=== PATIENT | male | born 1940 | race Caucasian/White ===

== ENCOUNTER 2017-07-09 10:29 | Inpatient (IN) | payer OTHER ==
[2017-06-12 08:36] VITALS: Ht 175.3 cm; Wt 89.3 kg
--- NOTE | 2017-06-12 09:14 | PAT Medication Instructions ---
Service Date Jun 12, 2017. Current Home Medication List Aspirin (Aspirin), 325 MG PO QAM Atorvastatin (Lipitor), 20 MG PO QPM Coenzyme Q10 (Ubidecarenone) (Coq10), 100 MG PO QAM Ibuprofen Tab (Advil), 400 MG PO PRN Lisinopril (Zestril), 20 MG PO QAM Medication Instructions For Your Scheduled Surgery - Contact your surgeon for instructions for: Aspirin (Aspirin), 325 MG PO QAM Ibuprofen Tab (Advil), 400 MG PO PRN - Hold the following medications for two weeks prior to surgery: Coenzyme Q10 (Ubidecarenone) (Coq10), 100 MG PO QAM - Hold the following medications the morning of surgery: Lisinopril (Zestril), 20 MG PO QAM - Take the following medications as scheduled the night before surgery: Atorvastatin (Lipitor), 20 MG PO QPM If you have any questions please call us at [phone] or [phone] or [phone]
[2017-06-12 10:04] LABS: BASO % 0.6 %; BASO ABS # 0.03 K/uL (0-0.2); EOS % 6.7 %; EOS ABS # 0.33 K/uL (0-0.5); HEMATOCRIT 44.8 % (42-52); HEMOGLOBIN 15.8 g/dL (14.0-18.0); IG# 0.01 K/uL (0.00-0.02); LYMPH % 27.1 %; LYMPH ABS # 1.34 K/uL (1.2-3.4); MEAN CELL VOLUME 92.6 fL (80-100); MEAN CORPUSCULAR HEMOGLOBIN 32.6 pg (25-34); MEAN CORPUSCULAR HGB CONC 35.3 g/dl (32-36); MEAN PLATELET VOLUME 10.1 fL (7.4-10.4); MONO % 12.8 %; MONO ABS # 0.63 K/uL (0.11-0.59); NEUT % 52.6 %; PLATELET COUNT 247 K/uL (130-400); RED CELL DISTRIBUTION WIDTH CV 13.1 % (11.5-14.5); RED CELL DISTRIBUTION WIDTH SD 44.3 fL (36.4-46.3); WHITE BLOOD COUNT 4.94 K/uL (4.8-10.8)
--- NOTE | 2017-06-12 10:04 | DIAGNOSTIC IMAGING REPORT ---
TWO VIEW CHEST CLINICAL HISTORY: Preoperative examination. FINDINGS: PA and lateral chest radiographs are obtained. No prior studies are available for comparison at the time of dictation. The heart is top normal for projection and there is atherosclerotic calcification of the thoracic aorta. There is an indeterminant subpleural density seen at the left lung base. No airspace consolidation or pleural effusion is identified. There is no pneumothorax. The skeletal structures are osteopenic. Mild degenerative change is seen throughout the thoracic spine. IMPRESSION: 1. No acute cardiopulmonary abnormality. 2. There is an indeterminant subpleural density at the left lung base. Correlation with a chest CT is recommended for further characterization. Electronically signed by: Cristopher Carmichael M.D. 06/12/2017 10:02 AM Dictated Date/Time: 06/12/2017 10:01 AM
[2017-06-12 10:12] LABS: CALCIUM 9.5 mg/dl (8.5-10.1); CREATININE 0.75 mg/dl (0.60-1.40); POTASSIUM 4.4 mmol/L (3.5-5.1)
[2017-06-12 10:15] LABS: PTT PATIENT 22.4 SECONDS (21.0-31.0)
--- NOTE | 2017-07-04 22:28 | HISTORY & PHYSICAL EXAMINATION ---
DATE OF ADMISSION: 07/09/2017 CHIEF COMPLAINT: Right knee pain and discomfort. HISTORY OF PRESENT ILLNESS: This is a 76-year-old male who presents for surgical treatment of his right knee. He has a long history of right knee pain, discomfort, not been found for the past couple of years. He has had injections into his knee which helped him intermittently. Sometimes they help and sometimes not. The pain is mostly medial. It is increased with weightbearing. There had been points where he has had difficulty walking for several days at a time. He would now like to proceed with knee replacement. PAST MEDICAL HISTORY: 1. Hypertension. 2. Low back pain. 3. Kidney stones. PAST SURGICAL HISTORY: Include, 1. Kidney stone removal. 2. Appendectomy. ALLERGIES: None. CURRENT MEDICINES: 1. Aspirin 325 once a day. 2. Coenzyme Q. 3. Lisinopril 20 mg a day. 4. Lipitor 20 mg a day. SOCIAL HISTORY: A 76-year-old male patient from [place]. He is a retired teacher. He is . He lives alone. Rare alcohol intake. FAMILY HISTORY: Significant for heart disease. REVIEW OF SYSTEMS: Negative for diabetes, neurologic problems, vascular problems or bleeding disorders. No chest pain or shortness of breath. No history of DVT or PE. PHYSICAL EXAMINATION: GENERAL: Reveals a healthy, pleasant, middle-aged male. He looks to be in pretty good health. HEENT: Benign. NECK: Supple. No lymphadenopathy. LUNGS: Clear to auscultation. HEART: Has a regular rate and rhythm. ABDOMEN: Soft, nontender, nondistended. EXTREMITIES: Grossly neurovascularly intact except as follows: Examination of the right knee reveals the patient ambulates independently. He does limp on his right side. He got varus alignment to his knee. Moderate size joint effusion. Range of motion about 10 degrees short of full extension to 125 degrees of flexion. There is no instability. No pain with hip motion. X-RAYS: X-rays of the right knee reviewed. It shows advanced right knee DJD. He has complete loss of his medial joint space. He has little bit of tibial femoral subluxation. He has disease in all 3 compartments. ASSESSMENT: A 76-year-old male with advanced right knee tricompartmental degenerative joint disease. He has failed conservative treatment and would like have his right knee replaced. PLAN: We will take him to the operating room and do a right total knee replacement. The risks and benefits of this procedure were explained to the patient including but not limited to DVT, PE, , infection, neurological injury, vascular injury, bleeding problems, pain, limited range of motion, stiffness, failure to relieve his symptoms, incomplete relief of symptoms, need for further surgery in the future, fracture, leg length inequality, nerve palsy, etc. The patient understands and desires to proceed. Informed consent was obtained. We did talk to him about holding his lisinopril the morning of surgery. He is planning to be discharged to home using the [facility] program I believe.
[~2017-07-09] VITALS: Ht 175.3 cm; Wt 89.3 kg
[2017-07-09] VITALS (7 sets, daily range): BP systolic 114–174; BP diastolic 65–101; PULSE 61–78; TEMP 36.4–37; O2SAT 92–98
[2017-07-09] MEDS: CHECK SCOPOLAMINE PATCH PLACEMENT SCH ×3 (08:00→18:59)
[~2017-07-09 10:29] MED LIST: ACETAMINOPHEN 500 MG TAB PO SCH; ASPI325T45 PO; ATOR-22 PO; BUPIVACAINE 0.5 % 5 MG/1 ML PF 10ML VIAL ONE; BUPIVACAINE LIPOSOME 266 MG, BUPIVACAINE/EPINEPHRINE INJ 50 ML, SODIUM CHLORIDE 0.9% PF... INFIL SCH; CEFAZOLIN 2000MG IV PUSH 10 ML IV SCH; COEN100C7 PO; DEXAMETHASONE SOD INJ 4 MG/ML VIAL ONE; EpHEDrine SULFATE INJ 50 MG/ML AMP ONE; FAMOTIDINE 20 MG TAB PO SCH; FENTANYL CITRATE INJ 50 MCG/1 ML 2 ML VIAL ONE; GABAPENTIN 300 MG CAP PO SCH; GLYCOPYRROLATE INJ 0.2 MG/ML VIAL ONE; IBUP-103 PO; KETOROLAC TROMETHAMINE 30 MG/ML VIAL ONE; LACTATED RINGER'S 1000ML 1,000 ML IV SCH; LACTATED RINGER'S 1000ML 500 ML IV SCH; LACTATED RINGER'S 1000ML IV SCH; LIDOCAINE HCL 2% 2 ML VIAL (20MG/ML) ONE; LISI-725 PO; METOCLOPRAMIDE HCL 10 MG TAB PO SCH; NEOSTIGMINE METHYLSULFATE 5 MG/5 ML SYR ONE; ONDANSETRON INJ 2 MG/ML 2 ML VIAL ONE; PHENYLEPHRINE HCL INJ 10 MG/ML VIAL ONE; PROPOFOL IV EMULSION 10 MG/ML 20 ML VIAL IV ONE; SCOPOLAMINE 1.5 MG TDSY TD SCH; SUCCINYLCHOLINE CHLORIDE 20 MG/ML 10 ML VIAL IV ONE; TRANEXAMIC ACID INJ 1,000 MG in SYRINGE 0 ML IV SCH
--- NOTE | 2017-07-09 11:34 | History & Physical Bridge Note ---
H&P Re-Evaluation Bridge Note: I have examined the patient, reviewed the History & Physical and in the interval since the performance of the History & Physical I have noted the following changes of clinical significance: No changes noted
[2017-07-09] MEDS ORDERED: HYDROmorphone INJ 1 MG/ML SYR IV PRN ×2 (11:45→15:30)
[2017-07-09] MEDS ORDERED: ONDANSETRON INJ 2 MG/ML 2 ML VIAL IV PRN ×2 (11:45→15:30)
[2017-07-09] MEDS ORDERED: ATROPINE SULFATE 0.1 MG/ML 5ML SYR IV PRN (11:45)
[2017-07-09] MEDS ORDERED: EpHEDrine SULFATE INJ 50 MG/ML AMP IV PRN (11:45)
[2017-07-09] MEDS ORDERED: MIDAZOLAM HCL 1 MG/ML 2ML VIAL ONE (12:07)
[2017-07-09] MEDS ORDERED: LIDOCAINE HCL 2% 2 ML VIAL (20MG/ML) ONE (12:25)
[2017-07-09] MEDS ORDERED: ROCURONIUM BROMIDE 10 MG/ML 5 ML VIAL IV ONE (12:25)
[2017-07-09] MEDS ORDERED: PROPOFOL IV EMULSION 10 MG/ML 20 ML VIAL IV ONE (12:25)
[2017-07-09] MEDS ORDERED: ONDANSETRON INJ 2 MG/ML 2 ML VIAL ONE (12:25)
[2017-07-09] MEDS ORDERED: FENTANYL CITRATE INJ 50 MCG/1 ML 2 ML VIAL ONE ×2 (12:26→14:14)
[2017-07-09] MEDS ORDERED: BACITRACIN 50000 UNIT VIAL ONE (13:25)
[2017-07-09] MEDS ORDERED: BUPIVACAINE LIPOSOME 1/3% 266 MG/20 ML VIAL INFIL ONE (13:25)
[2017-07-09] MEDS ORDERED: SODIUM CHLORIDE 0.9% PF 50 ML VIAL ONE (13:25)
[2017-07-09] MEDS ORDERED: BUPIVACAINE/EPINEPHRINE 0.25% 1:200,000 30 ML VIAL ONE (13:25)
[2017-07-09] MEDS ORDERED: HYDROmorphone INJ 2 MG/ML SYR/VIAL ONE (14:17)
--- NOTE | 2017-07-09 15:29 | [facility] Post Operative Brief Note ---
Immediate Operative Summary Operative Date Jul 09, 2017. Pre-Operative Diagnosis Advanced right knee degenerative joint disease. Post-Operative Diagnosis Advanced right knee degenerative joint disease. Procedure(s) Performed Right total knee arthroplasty. Surgeon Dr. Dyer Cnc Operator Surgeon(s) Philip Mock PA-C Estimated Blood Loss 50ml Findings Right Knee DJD Specimens A. Right knee bone and tissue. Drains None Anesthesia General Complication(s) None Disposition Recovery Room / PACU
[2017-07-09] MEDS ORDERED: ALUMINUM/MAGNESIUM/SIMETH (MAALOX MAX) 30 ML UDC PO PRN (15:30)
[2017-07-09] MEDS ORDERED: BISACODYL 10 MG SUPP PR PRN (15:30)
[2017-07-09] MEDS ORDERED: ZOLPIDEM TARTRATE 5 MG TAB PO PRN (15:30)
[2017-07-09] MEDS ORDERED: SILVER SULFADIAZINE 1% CR 50 GM JAR EXT PRN (15:30)
[2017-07-09] MEDS ORDERED: TAMSULOSIN HCL 0.4 MG CAP PO PRN (15:30)
[2017-07-09] MEDS ORDERED: METOCLOPRAMIDE HCL INJ 5 MG/ML 2 ML VIAL IV PRN (15:30)
[2017-07-09] MEDS ORDERED: MAGNESIUM HYDROXIDE SUSP 30 ML UDC PO PRN (15:30)
[2017-07-09] MEDS: FENTANYL CITRATE INJ 50 MCG/1 ML 2 ML VIAL IV PRN ×2 (16:00→16:09)
--- NOTE | 2017-07-09 16:13 | DIAGNOSTIC IMAGING REPORT ---
TWO VIEWS RIGHT KNEE CLINICAL HISTORY: Postoperative examination. FINDINGS: AP and crosstable lateral portable views of the right knee are obtained. A right knee arthroplasty is in near anatomic alignment. There has been undersurface remodeling of the patella. No acute fracture is seen. There are expected postoperative changes around the knee including skin clips, soft tissue edema, and subcutaneous gas. Atherosclerotic calcification is noted in the popliteal artery. IMPRESSION: Expected postoperative changes status post right knee arthroplasty. No acute fracture is seen. Electronically signed by: Cristopher Carmichael M.D. 07/09/2017 4:12 PM Dictated Date/Time: 07/09/2017 4:11 PM
--- NOTE | 2017-07-09 16:35 | Anesthesiology Progress Note ---
Anesthesia Post Op Note Date & Time Jul 09, 2017 at 16:35 Vital Signs Pain Intensity: 2 Vital Signs Past 12 Hours Date Time Temp Pulse Resp B/P (MAP) Pulse Ox O2 Delivery O2 Flow Rate FiO2 07/09/17 16:25 84 18 152/84 97 Nasal Cannula 2 07/09/17 16:15 86 19 151/91 97 Nasal Cannula 2 07/09/17 16:05 86 20 165/87 99 Oxymask 10 07/09/17 15:55 83 16 156/94 99 Oxymask 10 07/09/17 15:45 36.3 94 16 172/97 100 Oxymask 10 07/09/17 13:36 60 16 147/87 (107) 98 Diffusion Mask 10 07/09/17 13:20 59 16 143/85 (104) 100 Mask 8 07/09/17 13:10 60 18 145/88 (107) 100 Mask 8 07/09/17 11:17 36.5 78 16 174/101 98 Room Air Notes Mental Status: alert / awake / arousable, participated in evaluation Pt Amnestic to Procedure: Yes Nausea / Vomiting: adequately controlled Pain: adequately controlled Airway Patency, RR, SpO2: stable & adequate BP & HR: stable & adequate Hydration State: stable & adequate Anesthetic Complications: no major complications apparent
--- NOTE | 2017-07-09 18:47 | OPERATIVE REPORT ---
DATE OF OPERATION: 07/09/2017 SURGEON: Keyshawn Dyer MD PIECE HAND: DENZEL Oconnell PREOPERATIVE DIAGNOSIS: Right knee degenerative joint disease. POSTOPERATIVE DIAGNOSIS: Same. PROCEDURE PERFORMED: Right cemented posterior stabilized total knee arthroplasty. COMPLICATIONS: None. ESTIMATED BLOOD LOSS: 50 mL. FLUID REPLACEMENT: 2000 mL crystalloid fluid replacement. TOURNIQUET TIME: Fifty four minutes at 300 mmHg. ANESTHESIA: General with adductor canal block. DRAINS: None. SPECIMENS: Right knee sent for pathology. OPERATIVE INDICATIONS: The patient is a 76-year-old fairly active independent male who has had a several year history of increasing right knee pain and discomfort. He has been through extensive conservative treatment which became less successful over time. X-rays revealed advanced medial compartment DJD. The patient elected to proceed with operative treatment. OPERATIVE FINDINGS: Operative findings revealed advanced grade 4 [id number] of the medial femoral condyle and medial tibial plateau. He had grade 3 changes elsewhere. He had a moderate sized joint effusion. He had a fixed varus deformity to his knee. He had osteophytes primarily in the medial compartment. OPERATIVE IMPLANTS: Operative implants consisted of: 1. Biomet Vanguard size 67.5 right posterior stabilized femoral component. 2. Biomet size 71 tibial tray. 3. A 12 mm posterior stabilized polyethylene insert. 4. A 34 x 8.5 all poly patella. OPERATIVE PROCEDURE: The patient was taken to the operating room, identified and placed on the operating table in supine position. All contact areas were appropriately padded. IV antibiotics were provided by anesthesia team. A general anesthetic was implemented as the patient has pretty severe aortic stenosis. An adductor canal block had been provided in the holding area. A right thigh tourniquet was then placed and the right lower extremity was then prepped and draped in the usual sterile fashion. The right leg was elevated and exsanguinated with Esmarch and tourniquet was placed at 300 mmHg. An anterior approach to the right knee was then performed through a longitudinal incision centered over the patella. Sharp dissection was carried through the subcutaneous tissues down to the level of the extensor mechanism. A medial parapatellar arthrotomy incision was made. Some subperiosteal dissection was carried out medially. The fat pad was resected from beneath the patellar tendon. The lateral patellofemoral ligament was released. The patella was everted and knee was flexed. The osteophytes were taken off the distal femur. The ACL and PCL were then released from the distal femur and the tibia subluxated anteriorly. The external tibial alignment jig was then placed in the anterior face of the tibia and adjusted 16 mm medially. Proximal tibial cut was made to remove about 2 mm of bone from the most deficient aspect of the medial tibial plateau. Some osteophytes were taken off posteromedially. The tibia was sized to a size 71. This was a little bit undersized, but a 75 was too large in the anterior, posterior dimensions on the lateral side. Attention was then drawn to the femur. The distal femur was entered with a sharp drill bit. Intramedullary canal was suctioned. A right 6 degree valgus cutting guide was placed and distal femoral cutting block was pinned in place. Distal femoral cut was made to take an additional 3 mm of bone off the distal femur. The femur was then sized to a size 67.5. We did downsize this slightly. The AP cutting block was pinned parallel to the epicondylar axis, which was 4 degrees of external rotation. The anterior cut, anterior chamfer, posterior cut, posterior chamfer cuts were made. Box cutting guide was placed and adjusted slightly lateral and the box cut was made. The knee was flexed. The remnants of the medial and lateral menisci were excised. The osteophytes were taken off the posterior aspect of the femur. A trial femoral component was placed. Tibial tray was pinned in maximum external rotation and drill and stem punch were used to create defect in proximal tibia for the tibial tray. The knee was then trialed and the 12 mm insert fit most appropriately. Attention was then drawn to the patella. The patella was cleaned of all soft tissues. Patellar thickness measured 23 mm in thickness and was cut down to 15, it was sized to a size 34 patella. Lug holes were drilled for a 34 patella. Lateral osteophyte was removed. Patella button was placed. Knee was taken through range of motion and the patella tracked nicely with the no thumbs test. Attention was then drawn toward placement of the permanent components. All trial components were removed. A bone plug was placed in the distal femoral to limit blood loss. A double batch of Palacos G cement was mixed. A right size 67.5 posterior stabilized femoral component, a size 71 tibial tray, a 12 mm posterior stabilized polyethylene insert, and a 34 x 8.5 all poly patella was then cemented in place. The knee was brought in to full extension until all cement hardened. A final cement check was then performed. Pericapsular tissues were injected with a total of 100 mL of a combination of 20 mL or Exparel, 30 mL of normal saline, 50 mL of 0.25% Marcaine with epinephrine. The patient did receive 1 gram of tranexamic acid. The tourniquet was then let down for final tourniquet time 54 minutes. Hemostasis was assured with use of electrocautery. The extensor mechanism was then closed with a combination of #1 PDS suture and #1 Vicryl suture in a [id number] fashion. Extensor mechanism was checked and found to be intact. The subcutaneous tissues were then closed with 2-0 Dexon suture in a buried interrupted fashion. Skin was closed skin steve. Leg was then cleaned and dried and a sterile dressing with Xeroform, 4 x 4, sterile cast padding and Spenser bandage were applied. The patient was then brought out of general anesthesia and transferred to the recovery room in stable condition. The patient tolerated the procedure well with no complications. All needle and sponge counts were correct at the end of the operation. I attest to the content of the Intraoperative Record and any orders documented therein. Any exception s are noted below.
[2017-07-09] MEDS: FERROUS GLUCONATE 324 MG TAB PO SCH (19:01)
[2017-07-09] MEDS: KETOROLAC TROMETHAMINE 15 MG/ML VIAL IV. SCH (19:01)
[2017-07-09] MEDS ORDERED: NURSING VERBAL MED ORDER ONE (19:15)
[2017-07-09] MEDS: ASPIRIN 325 MG ECTAB PO SCH (20:58)
[2017-07-09] MEDS: SENNA 8.6 MG TAB PO SCH (20:59)
[2017-07-09] MEDS: D5W AND 1/2NSS + 20MEQ KCL 1,000 ML IV SCH (20:59)
[2017-07-09] MEDS: ATORVASTATIN 20 MG TAB PO SCH (20:59)
[2017-07-09] MEDS: DOCUSATE SODIUM 100 MG CAP PO SCH (20:59)
[2017-07-09] MEDS: ACETAMINOPHEN 500 MG TAB PO SCH (21:00)
[2017-07-09] MEDS ORDERED: NURSING DECISION MEDICATION ORDER SCH (21:15)
[2017-07-09] MEDS ORDERED: COUGH DROP (SUGAR FREE) LOZ 24 LOZ/1 BOX PO PRN (21:30)
[2017-07-09] MEDS ORDERED: TRANEXAMIC ACID INJ 1,000 MG in SODIUM CHLORIDE 0.9% 100ML 100 ML IV SCH (22:00)
[2017-07-09] MEDS: CEFAZOLIN IV 2,000 MG in SYRINGE 0 ML IV SCH (22:17)
[2017-07-10] VITALS (7 sets, daily range): BP systolic 120–150; BP diastolic 67–88; PULSE 55–86; TEMP 36.3–37.1; O2SAT 95–97
[2017-07-10] MEDS: KETOROLAC TROMETHAMINE 15 MG/ML VIAL IV. SCH ×5 (00:51→20:52)
[2017-07-10] MEDS: D5W AND 1/2NSS + 20MEQ KCL 1,000 ML IV SCH ×2 (04:47→12:33)
[2017-07-10] MEDS: CEFAZOLIN IV 2,000 MG in SYRINGE 0 ML IV SCH (05:23)
[2017-07-10] MEDS: ACETAMINOPHEN 500 MG TAB PO SCH ×3 (05:23→21:24)
[2017-07-10 07:14] LABS: HEMOGLOBIN 12.3 g/dL (14.0-18.0); MEAN CELL VOLUME 92.8 fL (80-100); MEAN CORPUSCULAR HEMOGLOBIN 31.7 pg (25-34); MEAN CORPUSCULAR HGB CONC 34.2 g/dl (32-36); MEAN PLATELET VOLUME 9.8 fL (7.4-10.4); PLATELET COUNT 200 K/uL (130-400); RED CELL DISTRIBUTION WIDTH CV 13.2 % (11.5-14.5); RED CELL DISTRIBUTION WIDTH SD 44.2 fL (36.4-46.3); WHITE BLOOD COUNT 10.63 K/uL (4.8-10.8)
[2017-07-10 07:42] LABS: CALCIUM 8.3 mg/dl (8.5-10.1); CREATININE 0.92 mg/dl (0.60-1.40); POTASSIUM 3.9 mmol/L (3.5-5.1)
[2017-07-10] MEDS ORDERED: NON-FORMULARY MEDICATION (Coenzyme Q10 (Ubidecarenone) (Coq10) 100 MG) PO SCH (09:00)
--- NOTE | 2017-07-10 09:12 | Anesthesiology Progress Note ---
Anesthesia Post Op Note Date & Time Jul 10, 2017 at 09:11 Vital Signs Pain Intensity: 0.0 Vital Signs Past 12 Hours Date Time Temp Pulse Resp B/P (MAP) Pulse Ox O2 Delivery O2 Flow Rate FiO2 07/10/17 07:47 96 Room Air 07/10/17 07:39 36.9 55 20 120/70 (87) 96 Room Air 07/10/17 07:35 Room Air 07/10/17 02:30 36.8 62 16 130/75 (93) 95 Room Air 07/10/17 00:30 Room Air 07/09/17 23:47 36.4 61 16 114/65 (81) 92 Room Air Notes Mental Status: alert / awake / arousable, participated in evaluation Pt Amnestic to Procedure: Yes Nausea / Vomiting: adequately controlled Pain: adequately controlled Airway Patency, RR, SpO2: stable & adequate BP & HR: stable & adequate Hydration State: stable & adequate Anesthetic Complications: no major complications apparent
[2017-07-10] MEDS: FERROUS GLUCONATE 324 MG TAB PO SCH ×3 (09:23→18:08)
[2017-07-10] MEDS: DOCUSATE SODIUM 100 MG CAP PO SCH ×2 (09:23→20:51)
[2017-07-10] MEDS: ASPIRIN 325 MG ECTAB PO SCH ×2 (09:23→20:51)
[2017-07-10] MEDS: LISINOPRIL 20 MG TAB PO SCH (09:24)
[2017-07-10] MEDS: PANTOprazole SOD 40 MG TAB PO SCH (09:24)
[2017-07-10] MEDS: CHECK SCOPOLAMINE PATCH PLACEMENT SCH ×3 (09:25→14:13)
[2017-07-10] MEDS: MULTIVITAMIN TAB PO SCH (09:25)
--- NOTE | 2017-07-10 14:20 | PROGRESS NOTE ---
DATE: 07/10/2017 DATE: 07/10/2017 SUBJECTIVE: A 76-year-old gentleman postop day 1 from right knee replacement. He is doing well. He rates his most severe pain at a 2. No chest pain or shortness of breath. Not feeling dizzy or lightheaded. OBJECTIVE: VITAL SIGNS: Temperature is 36.3. Vital signs stable. PHYSICAL EXAMINATION: GENERAL: Reveals a healthy, pleasant, middle-aged male. He is sitting up in bed and looks comfortable. LUNGS: Clear to auscultation. HEART: Regular rate and rhythm. ABDOMEN: Soft, nontender, nondistended. EXTREMITY EXAMINATION: Grossly neurovascularly intact as follows: Examination of the right leg reveals the dressing to be clean, dry and intact. Leg is well aligned. He can dorsiflex and plantarflex his foot appropriately. He is neurologically intact. LABORATORY DATA: Hemoglobin 12.3, hematocrit 36.0. Electrolytes are stable. ASSESSMENT: A 76-year-old gentleman postop day 1 from a right knee replacement, doing well. His pain is controlled. He is neurologically intact. PLAN: 1. DVT prophylaxis including thigh-high TEDs, SCDs, and aspirin twice a day. 2. PT/OT. Weightbearing as tolerated. Right total knee protocol. 3. Pain control. Doing well with current pain regimen. 4. Disposition. Plan to discharge to home with some home health once adequately recovered.
[2017-07-10] MEDS: TRAMADOL HCL 50 MG TAB PO PRN (18:14)
[2017-07-10] MEDS ORDERED: ULT50X PO (21:05)
[2017-07-10] MEDS ORDERED: ASPEC325 PO (21:05)
[2017-07-10] MEDS ORDERED: ACET-24 PO (21:05)
--- NOTE | 2017-07-10 21:08 | Discharge Instructions ---
Discharge Instructions Date of Service Jul 10, 2017. Admission Reason for Admission: Right Knee Degenerative Joint Disease Discharge Discharge Diagnosis / Problem: Right Knee Replacement Discharge Goals Goal(s): Decrease discomfort, Improve function, Increase independence, Improve disease control, Therapeutic intervention Activity Recommendations Activity Limitations: per Instructions/Follow-up section Lifting Limitations: gradually increase as tolerated Weightbearing Status: Right weightbearing . Instructions / Follow-Up Instructions / Follow-Up ACTIVITY RECOMMENDATIONS: Physical Therapy: * You will go to physical therapy three times each week for four to six weeks after your surgery in order to regain your knee range of motion and to retrain your knee to work properly. * It is just as important to make sure you are getting your knee perfectly straight as it is to regain your knee bend. * Taking a pain pill an hour before therapy can help you have a more productive and comfortable therapy session. Home Exercise: * You were shown a series of exercises (heel props, heel slides, etc.) in the hospital. Do these exercises three to four times each day including the exercises you were shown in physical therapy. Walking: * Get up and walk several times each day. For the first four weeks, try not to stand or walk for more than one hour at a time. If you do stand or walk for more than one hour, you will not hurt anything, but your knee and leg will likely swell. * As you feel comfortable, you may change from the walker or crutches to a cane and then to independent walking. MEDICATIONS: New Medicine: * You will likely be taking one or more of these medications: 1. Tramadol - A quick and shorter-acting pain medication. Take one to two tablets every four to six hours to lessen your pain. 2. Aspirin - Thins your blood to lessen the chance of forming a blood clot. * The most common side effects of pain medicine and iron are nausea and constipation. If nausea or constipation is too much of a problem or if you have any questions about your new medicines or doses, call [facility] at . We will try to help you manage these issues. VERY IMPORTANT TO READ AND REVIEW" Pain: * The immediate post-operative period after knee replacement surgery is often quite painful. * You are given a prescription for pain medicine. You should take it, as directed, when you need it, especially before physical therapy and before going to bed. Pain that interferes with sleep is very common and can last several months. * You will likely need pain medicine for the first four to six weeks. It will not stop all of the pain. The pain will lessen and as you feel better, you may change to milder pain medicine such as Tylenol. * The most common side effects of pain medicine are nausea and constipation, so don't take more than you need. SPECIAL CARE INSTRUCTIONS: TEDs/Elastic Stockings: * The white elastic stockings help limit swelling and prevent blood clots from forming in your legs. The more you wear them, the more they work. * Wear them for six weeks after knee replacement surgery and four weeks after partial knee replacement. Prevention of Infection: * Take antibiotics one hour before any dental cleaning, dental work, urological procedure, gastrointestinal procedure or any invasive surgery in order to prevent your new joint from getting infected. * You may get the antibiotics from the doctor performing the procedure or you may call our office at before and we will call in a prescription to the pharmacy of your choice. Things to Watch For: * Drainage from the incision site that occurs more than one week after your surgery. * Severely increased knee/leg pain or swelling. * Increased redness at the incision site. * Fever above 102 degrees Fahrenheit. * Unusual chest pain or shortness of breath. * Unusual pain or burning with urination. Call [facility] at with any of the above problems or if you have any questions about your medicines or recovery. FOLLOW UP VISIT: Make an appointment to see your doctor for approximately two weeks after surgery for a progress check and staple removal by calling the office at . Current Hospital Diet Patient's current hospital diet: Regular Diet Discharge Diet Recommended Diet: Regular Diet Procedures Procedures Performed: Right total knee arthroplasty. Pending Studies Studies pending at discharge: no Medical Emergencies . Who to Call and When: Medical Emergencies: If at any time you feel your situation is an emergency, please call [phone] immediately. . Non-Emergent Contact Non-Emergency issues call your: Surgeon . "Provider Documentation" section prepared by Keyshawn Dyer. . VTE Core Measure Inpt VTE Proph given/why not?: Other Anticoagulation, T.E.D. Stockings, SCD's
[2017-07-10] MEDS: ATORVASTATIN 20 MG TAB PO SCH (21:23)
[2017-07-10] MEDS: SENNA 8.6 MG TAB PO SCH (21:23)
[2017-07-11] MEDS: CHECK SCOPOLAMINE PATCH PLACEMENT SCH ×2 (00:03→07:30)
[2017-07-11] MEDS: TRAMADOL HCL 50 MG TAB PO PRN ×2 (02:19→13:33)
[2017-07-11] MEDS: KETOROLAC TROMETHAMINE 15 MG/ML VIAL IV. SCH ×2 (06:00→11:43)
[2017-07-11] MEDS: ACETAMINOPHEN 500 MG TAB PO SCH ×2 (06:27→14:00)
[2017-07-11 07:09] VITALS: BP 146/77; PULSE 71; TEMP 36.8; O2SAT 93
[2017-07-11] MEDS: FERROUS GLUCONATE 324 MG TAB PO SCH ×2 (07:30→14:11)
--- NOTE | 2017-07-11 07:39 | PROGRESS NOTE ---
DATE: 07/11/2017 SUBJECTIVE: A 76-year-old gentleman postop day 2 from right knee replacement. A little bit more pain this morning. No chest pain or shortness of breath. Not feeling dizzy or lightheaded . OBJECTIVE: VITAL SIGNS: Temperature 37.1. Vital signs stable. GENERAL: Reveals a healthy, pleasant, middle-aged male. He is lying in bed and looks reasonably comfortable. EXTREMITIES: Examination of the right leg reveals the dressing to be clean, dry and intact. His leg is well aligned. Some moderate swelling. He can dorsiflex and plantarflex his foot appropriately. He is neurologically intact. ASSESSMENT: A 76-year-old gentleman postop day 2 from right knee replacement, doing pretty well. A little bit more pain today likely due to that the block is wearing off. He is neurologically intact. PLAN: 1. DVT prophylaxis including thigh-high TEDs, SCDs, and aspirin twice a day. 2. PT, OT. Weightbear as tolerated. Right total knee protocol. 3. Pain control. Doing okay with current pain regimen. 4. Disposition: Plan to discharge to home with some home health later today.
[2017-07-11] MEDS: PANTOprazole SOD 40 MG TAB PO SCH (09:33)
[2017-07-11] MEDS: LISINOPRIL 20 MG TAB PO SCH (09:33)
[2017-07-11] MEDS: MULTIVITAMIN TAB PO SCH (09:33)
[2017-07-11] MEDS: DOCUSATE SODIUM 100 MG CAP PO SCH (11:41)
[2017-07-11] MEDS: ASPIRIN 325 MG ECTAB PO SCH (11:41)
[2017-07-11 14:00] VITALS: BP 146/77; PULSE 71; TEMP 36.8; O2SAT 93
== END 2017-07-11 15:06 | disposition home health service (06) | DRG 470 ==
LOC: C.ACU 10:29 → C.3E 11:00 → ENRESERV 16:14
PROVIDERS: ADMIT Orthopaedic Surgery Sports Medicine; ATTEND Orthopaedic Surgery Sports Medicine
PROC: 0SRT0J9 Replacement of Right Knee Joint, Femoral Surface with Synthetic Substitute, Cemented, Open Approach (ICD-10-PCS; principal; 2017-07-09 13:10)
DX: M17.11 Unilateral primary osteoarthritis, right knee (principal); I10 Essential (primary) hypertension; Z87.442 Personal history of urinary calculi; Z79.82 Long term (current) use of aspirin; Z82.49 Family history of ischemic heart disease and other diseases of the circulatory system